=== PATIENT | male | born 1970 | race Hispanic/Latino ===

== ENCOUNTER 2019-02-26 11:07 | Emergency (ER) | payer BC, OTHER ==
[2019-02-26 11:15] VITALS: BMI 29.0
[2019-02-26] MEDS ORDERED: Sodium Chloride 0.9% 1,000 ML IV STA (12:29)
--- NOTE | 2019-02-26 13:17 | ED PDOC ---
HPI: General Adult Time Seen by Provider: 02/26/19 11:39 Chief Complaint (Nursing): Abdominal Pain History Per: Patient Additional Complaint(s): Pt. states earlier today after eating breakfast at approximately 0830 he began to feel "uneasy." Describes feeling as if his vision is "slowed down" and he is having a difficult time concentrating. Shortly after he felt nauseous and he vomited twice. Symptoms persists. Further reports he's had increased "stomach gas" and was evaluated by his PMD, Dr. Avni Duckworth, who evaluated him and ordered an US of his abdomen. He was informed today via phone that his US showed a "fatty liver" and a cyst in one of his kidneys. Denies abdominal pain, fever, chills, diarrhea, chest pain, SOB, hematemesis, palpitations, headache, hearing changes, head injury. Past Medical History Reviewed: Historical Data, Nursing Documentation, Vital Signs Vital Signs: Last Vital Signs Temp 98.4 F 02/26/19 11:16 Pulse 53 L 02/26/19 11:16 Resp 17 02/26/19 11:16 BP 133/85 02/26/19 11:16 Pulse Ox 96 02/26/19 11:16 - Medical History PMH: Hypercholesterolemia, Hypothyroidism - Family History Family History: States: No Known Family Hx - Immunization History Hx Tetanus Toxoid Vaccination: No (unknown) Hx Influenza Vaccination: No Hx Pneumococcal Vaccination: No - Home Medications Home Medications: Ambulatory Orders Medication Instructions Recorded Cephalexin [Keflex] 500 mg PO TID #21 tab 08/27/15 Levothyroxine [Synthroid] 125 mcg PO AC 08/27/15 oxyCODONE/Acetaminophen [Percocet 1 ea PO Q6H PRN #15 tab 08/27/15 5/325 mg Tab] Non-Formulary 1 ea .ROUTE Q6 #1 ea 10/07/16 Meclizine [Meclizine*] 50 mg PO Q6 PRN #10 tab 02/26/19 - Allergies Allergies/Adverse Reactions: Allergies Allergy/AdvReac Type Severity Reaction Status Date / Time No Known Allergies Allergy Verified 08/27/15 03:01 Review of Systems ROS Statement: Except As Marked, All Systems Reviewed And Found Negative Physical Exam - Physical Exam Appears: Positive for: Well, Non-toxic, No Acute Distress Head Exam: Positive for: ATRAUMATIC, NORMAL INSPECTION, NORMOCEPHALIC Skin: Positive for: Normal Color, Warm. Negative for: Rash Eye Exam: Positive for: Normal appearance, EOMI, PERRL. Negative for: Nystagmus ENT: Positive for: Normal ENT Inspection Neck: Positive for: Normal, Painless ROM, Supple Cardiovascular/Chest: Positive for: Regular Rate, Rhythm. Negative for: Tachycardia Respiratory: Positive for: Normal Breath Sounds Gastrointestinal/Abdominal: Positive for: Normal Exam, Soft. 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 Negative for: Facial Droop - Laboratory Results Result Diagrams: 02/26/19 13:05 02/26/19 13:05 - ECG ECG: Positive for: Interpreted By Me ECG Rhythm: Positive for: Sinus Bradycardia. Negative for: ST/T Changes Rate: 47 O2 Sat by Pulse Oximetry: 96 - Progress ED Course And Treament: Labs, CT head w/o contrast, EKG, antivert 50mg PO, zofran 4mg IV, IV NS bolus x 1 ordered. Case d/w Dr. Palacios who agrees with plan and care. 1345 On re-evaluation, pt. reports feeling much better. 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 reports complete relief of symptoms. "Uneasy" feeling has resolved. Repeat neuro exam is non-focal. Gait steady, unassisted. 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 Informed of all results and advised to f/u with PMD for further evaluation but is to return to ED immediately if symptoms worsen. Disposition - Clinical Impression Clinical Impression: Vertigo - Patient ED Disposition Is Patient to be Admitted: No - Disposition Referrals: [facility] [Outside] Madelyn Cornell MD [Medical Doctor] - Mega Melendez MD [Staff Provider] - Disposition: Routine/Home Disposition Time: 15:33 Condition: IMPROVED Additional Instructions: FOLLOW UP WITH YOUR DOCTOR FOR FURTHER EVALUATION RETURN TO ED IMMEDIATELY IF SYMPTOMS WORSEN JORGE L CLARK, thank you for letting us take care of you today. Your provider was Alex Palacios MD and you were treated for ABD PAIN. The emergency medical care you received today was directed at your acute symptoms. If you were prescribed any medication, please fill it and take as directed. It may take several days for your symptoms to resolve. Return to the Emergency Department if your symptoms worsen, do not improve, or if you have any other problems. Please contact your doctor or call one of the physicians/clinics you have been referred to that are listed on the Patient Visit Information form that is included in your discharge packet. Bring any paperwork you were given at discharge with you along with any medications you are taking to your follow up visit. Our treatment cannot replace ongoing medical care by a primary care provider outside of the emergency department. Thank you for allowing the [facility] team to be part of your care today. If you had an X-Ray or CT scan: A Radiologist will review the ED reading if any change in treatment is needed we will contact you. If you had a blood, urine, or wound culture: It will take several days for the results, if any change in treatment is needed we will contact you. If you had an STI test: It will take 48 hours for the results. Please call after 1 week if you have not heard back. Prescriptions: Meclizine [Meclizine*] 50 mg PO Q6 PRN #10 tab PRN Reason: vertigo Instructions: Vertigo (a Type of Dizziness) (DC) Forms: [address] ([place]), [facility] ED School/Work Excuse
[2019-02-26 13:27] LABS: BASO % 0.3 % (0.0-2.0); EOS % 0.1 % (0.0-4.0); HEMOGLOBIN 15.2 g/dL (12.0-18.0); LYMPH # 1.3 K/uL (1.0-4.3); LYMPH % 15.3 % (20.0-40.0); MEAN CORPUSCULAR HEMOGLOBIN 30.7 pg (27.0-31.0); MEAN CORPUSCULAR HGB CONC 34.1 g/dL (33.0-37.0); MEAN PLATELET VOLUME 9.3 fl (7.2-11.7); MONO # 0.6 K/uL (0.0-0.8); MONO % 6.5 % (0.0-10.0); NEUT # 6.7 K/uL (1.8-7.0); NEUT % 77.8 % (50.0-75.0); NRBC % 0.2 % (0.0-0.0); RBC 4.95 Mil/uL (4.40-5.90); RED CELL DISTRIBUTION WIDTH 13.1 % (11.5-14.5); WHITE BLOOD COUNT 8.7 K/uL (4.8-10.8)
--- NOTE | 2019-02-26 13:29 | CT ---
Date of service: 02/26/2019 PROCEDURE: CT HEAD WITHOUT CONTRAST. HISTORY: dizziness COMPARISON: Not available TECHNIQUE: Axial computed tomography images were obtained through the head/brain without intravenous contrast. Radiation dose: Total exam DLP = 1049.81 mGy-cm. This CT exam was performed using one or more of the following dose reduction techniques: Automated exposure control, adjustment of the mA and/or kV according to patient size, and/or use of iterative reconstruction technique. FINDINGS: HEMORRHAGE: No intracranial hemorrhage. BRAIN: No mass effect or edema. No atrophy or chronic microvascular ischemic changes. VENTRICLES: Unremarkable. No hydrocephalus. CALVARIUM: Unremarkable. PARANASAL SINUSES: Unremarkable as visualized. No significant inflammatory changes. MASTOID AIR CELLS: Unremarkable as visualized. No inflammatory changes. OTHER FINDINGS: None. IMPRESSION: Normal CT of the Head. No intracranial mass, hemorrhage or evidence of acute infarct.
[2019-02-26 13:31] LABS: SQUAMOUS EPITHIAL < 1 /hpf (0-5); URINE BILIRUBIN NEGATIVE (NEGATIVE); URINE BLOOD NEGATIVE (NEGATIVE); URINE CLARITY CLEAR (Clear); URINE COLOR YELLOW (YELLOW); URINE GLUCOSE (UA) NEG (NEGATIVE); URINE LEUKOCYTE ESTERASE NEG Leu/uL (Negative); URINE PROTEIN NEGATIVE (NEGATIVE); URINE UROBILINOGEN 0.2-1.0 mg/dL (0.2-1.0)
[2019-02-26 13:47] LABS: BARBITURATES, UR NEGATIVE (NEGATIVE); BENZODIAZEPINES, UR NEGATIVE (NEGATIVE); OPIATES, UR NEGATIVE (NEGATIVE); PHENCYCLIDINE, UR NEGATIVE (NEGATIVE)
[2019-02-26 13:52] LABS: ALB/GLOB RATIO 1.5 (1.0-2.1); ALBUMIN 4.7 g/dL (3.5-5.0); ALT/SGPT 56 U/L (21-72); AST/SGOT 26 U/L (17-59); BLOOD UREA NITROGEN 14 mg/dl (9-20); CALCIUM 9.2 mg/dL (8.4-10.2); GFR NON-AFRICAN AMERICAN > 60; LIPASE 39 U/L (23-300)
[2019-02-26 13:58] VITALS: RESP 16; TEMP 98.1
[2019-02-26 14:34] LABS: T3 0.979 nmol/L (1.49-2.60)
[2019-02-26 15:50] VITALS: BP 132/78; PULSE 68; O2SAT 100
--- NOTE | 2019-02-26 18:41 | CARD ---
APPROVED REPORT Date of service: 02/26/2019 EKG Measurement Heart [id number] <Conclusion> Sinus bradycardia Otherwise normal ECG
== END 2019-02-26 15:50 | disposition home or self-care (01) ==
LOC: H.ER 11:07
DX: R42 Dizziness and giddiness (principal); E03.9 Hypothyroidism, unspecified
CPT/HCPCS: 70450; 80053; 81003; 83690; 84436; 84439; 84443; 84481; 84484; 85025; 93005; 96374; 99283; G0480; J2405; J7030